=== PATIENT | female | born 1990 | race Caucasian/White ===

== ENCOUNTER 2017-07-17 19:28 | Emergency (ER) | payer MEDICAID ==
[2017-07-17 21:13] VITALS: BP 125/75
== END 2017-07-17 21:13 | disposition home or self-care (01) ==
LOC: ED 19:28
DX: M54.5 Low back pain (principal)
CPT/HCPCS: J1885

== ENCOUNTER 2019-05-25 19:02 | Emergency (ER) | payer MEDICAID ==
[~2019-05-25] VITALS: Ht 175.3 cm; Wt 118.4 kg
[2019-05-25 19:11] VITALS: Ht 175.3 cm; Wt 118.4 kg
[2019-05-25 22:23] VITALS: BP 137/80
== END 2019-05-25 22:23 | disposition home or self-care (01) ==
LOC: ED 19:02
DX: L60.0 Ingrowing nail (principal)
CPT/HCPCS: J2001